=== PATIENT | female | born 1960 | race Caucasian/White ===

== ENCOUNTER 2019-08-23 18:04 | Emergency (ER) | payer MEDICAID, OTHER ==
--- NOTE | 2019-08-23 18:11 | EDM.PDOC ---
<[facility] - Last Filed: 08/23/19 18:32> ED HPI GENERAL MEDICAL PROBLEM - General Stated Complaint: CHEST PAIN Time Seen by Provider: 08/23/19 18:32 Source of Information: Reports: Patient History Limitations: Reports: No Limitations - History of Present Illness INITIAL COMMENTS - FREE TEXT/NARRATIVE: 59 yo F who presented to the ER with chest pain and discomforts that started about an hour ago after doing her chores. Patient has h/o anxiety.Took Hydroxyzine last night for anxiety but does not think it helped. Patient reports that she has trouble catching her breath. No cough, Fever, nausea or vomiting. Went to the urgent care clinic and was sent to the ER for further evaluation. Onset: Today - Related Data Allergies Allergy/AdvReac Type Severity Reaction Status Date / Time Unable to Assess Allergy Unverified 08/23/19 18:23 Home Meds: Home Meds FLUoxetine [PROzac] 20 mg PO DAILY 08/23/19 [History] buPROPion [Wellbutrin SR] 150 mg PO DAILY 08/23/19 [History] hydrOXYzine HCL [Atarax] 25 mg PO BEDTIME PRN 08/23/19 [History] ED ROS GENERAL - Review of Systems Review Of Systems: See Below Constitutional: Reports: No Symptoms HEENT: Reports: No Symptoms Respiratory: Reports: No Symptoms Cardiovascular: Reports: Chest Pain Endocrine: Reports: No Symptoms GI/Abdominal: Reports: No Symptoms : Reports: No Symptoms Musculoskeletal: Reports: No Symptoms Skin: Reports: No Symptoms Neurological: Reports: No Symptoms Psychiatric: Reports: No Symptoms Hematologic/Lymphatic: Reports: No Symptoms Immunologic: Reports: No Symptoms ED EXAM, GENERAL - Physical Exam Exam: See Below Exam Limited By: No Limitations General Appearance: Alert, WD/WN, No Apparent Distress Eye Exam: Bilateral Eye: EOMI, PERRL Ears: Normal External Exam, Normal Canal, Hearing Grossly Normal, Normal TMs Ear Exam: Bilateral Ear: Auricle Normal, Canal Normal Nose: Normal Inspection, Normal Mucosa Throat/Mouth: Normal Inspection, Normal Lips, Normal Teeth Head: Atraumatic, Normocephalic Neck: Normal Inspection, Supple, Non-Tender, Full Range of Motion Respiratory/Chest: No Respiratory Distress, Lungs Clear Cardiovascular: Normal Peripheral Pulses, Regular Rate, Rhythm, No Edema GI/Abdominal: Normal Bowel Sounds, Soft, Non-Tender, No Organomegaly, No Mass Extremities: Normal Inspection, Normal Range of Motion, Non-Tender Neurological: Alert, Oriented, CN II-XII Intact, Normal Cognition Psychiatric: Normal Affect, Normal Mood Skin Exam: Warm Course - Vital Signs Last Recorded V/S: Last Vital Signs Temp 36.8 C 08/23/19 18:04 Pulse 99 08/23/19 18:04 Resp 19 08/23/19 18:04 BP 128/80 08/23/19 18:04 Pulse Ox 95 08/23/19 18:04 - Orders/Labs/Meds Orders: Active Orders 24 hr Category Date Time Status CXR [Chest 1V Frontal] [CR] Stat Exams 08/23/19 19:02 Taken Labs: Laboratory Tests 08/23/19 08/23/19 08/23/19 Range/Units 18:20 18:20 18:20 WBC 5.7 (4.5-12.0) X10-3/uL RBC 4.45 (3.23-5.20) x10(6)uL Hgb 14.1 (11.5-15.5) g/dL Hct 41.5 (30.0-51.3) % MCV 93.1 (80-96) fL MCH 31.6 (27.7-33.6) pg MCHC 33.9 (32.2-35.4) g/dL RDW 13.7 (11.5-15.5) % Plt Count 225 (125-369) X10(3)uL MPV 7.2 L (7.4-10.4) fL Neut % (Auto) 62.4 (46-82) % Lymph % (Auto) 28.4 (13-37) % [place] % (Auto) 7.6 (4-12) % Eos % (Auto) 1 (1.0-5.0) % Baso % (Auto) 1 (0-2) % Neut # (Auto) 3.6 (1.6-8.3) # Lymph # (Auto) 1.6 (0.6-5.0) # [place] # (Auto) 0.4 (0.0-1.3) # Eos # (Auto) 0.0 (0.0-0.8) # Baso # (Auto) 0.1 (0.0-0.2) # D-Dimer, Quantitative (0.0-0.59) mg/LFEU Sodium 138 (135-145) mmol/L Potassium 4.2 (3.5-5.3) mmol/L Chloride 103 (100-110) mmol/L Carbon Dioxide 26 (21-32) mmol/L BUN 15 (7-18) mg/dL Creatinine 1.2 H (0.55-1.02) mg/dL Est Cr Clr Drug Dosing 50.30 mL/min Estimated GFR (MDRD) 46 L (>60) BUN/Creatinine Ratio 12.5 (9-20) Glucose 107 (80-116) mg/dL Calcium 8.9 (8.6-10.2) mg/dL Total Bilirubin 0.5 (0.1-1.3) mg/dL AST 22 (5-25) IU/L ALT 37 H (12-36) U/L Alkaline Phosphatase 75 (56-112) IU/L Troponin I 5.2 (4.0-60.3) pg/mL NT-Pro-B Natriuret Pep (<=125) pg/mL Total Protein 7.3 (6.0-8.0) g/dL Albumin 4.1 (3.5-5.2) g/dL Globulin 3.2 g/dL Albumin/Globulin Ratio 1.3 08/23/19 08/23/19 Range/Units 18:20 18:20 WBC (4.5-12.0) X10-3/uL RBC (3.23-5.20) x10(6)uL Hgb (11.5-15.5) g/dL Hct (30.0-51.3) % MCV (80-96) fL MCH (27.7-33.6) pg MCHC (32.2-35.4) g/dL RDW (11.5-15.5) % Plt Count (125-369) X10(3)uL MPV (7.4-10.4) fL Neut % (Auto) (46-82) % Lymph % (Auto) (13-37) % [place] % (Auto) (4-12) % Eos % (Auto) (1.0-5.0) % Baso % (Auto) (0-2) % Neut # (Auto) (1.6-8.3) # Lymph # (Auto) (0.6-5.0) # [place] # (Auto) (0.0-1.3) # Eos # (Auto) (0.0-0.8) # Baso # (Auto) (0.0-0.2) # D-Dimer, Quantitative < 0.19 (0.0-0.59) mg/LFEU Sodium (135-145) mmol/L Potassium (3.5-5.3) mmol/L Chloride (100-110) mmol/L Carbon Dioxide (21-32) mmol/L BUN (7-18) mg/dL Creatinine (0.55-1.02) mg/dL Est Cr Clr Drug Dosing mL/min Estimated GFR (MDRD) (>60) BUN/Creatinine Ratio (9-20) Glucose (80-116) mg/dL Calcium (8.6-10.2) mg/dL Total Bilirubin (0.1-1.3) mg/dL AST (5-25) IU/L ALT (12-36) U/L Alkaline Phosphatase (56-112) IU/L Troponin I (4.0-60.3) pg/mL NT-Pro-B Natriuret Pep 90 (<=125) pg/mL Total Protein (6.0-8.0) g/dL Albumin (3.5-5.2) g/dL Globulin g/dL Albumin/Globulin Ratio Departure - Departure Disposition: Home, Self-Care 01 Clinical Impression: Chest pain, Chemical exposure, Anxiety Instructions: Nonspecific Chest Pain, Adult Referrals: Chery Stevens [employer] [Primary Care Provider] - Additional Instructions: Please read discharge instructions on atypical chest pain Wear mask when you work on with chemicals Take your clonazepam 0.5-1 mg twice daily for anxiety Follow up as needed Sepsis Event Note - Focused Exam Vital Signs: Vital Signs Temp Pulse Resp BP Pulse Ox 08/23/19 18:04 36.8 C 99 19 128/80 95 Date Exam was Performed: 08/23/19 Time Exam was Performed: 18:32 <Fabian Singh - Last Filed: 08/23/19 19:31> ED HPI GENERAL MEDICAL PROBLEM headache Pain Score (Numeric/FACES): 3 Course - Vital Signs Text/Narrative:: Labs/EKG/CXR was discussed with patient and verbalized full understanding Departure - Departure Time of Disposition: 19:30 Condition: Good Sepsis Event Note - Focused Exam Date Exam was Performed: 08/23/19 Time Exam was Performed: 19:28
--- NOTE | 2019-08-24 09:58 | CR ---
INDICATION: Chest pain. CHEST,1 VIEW: An AP upright view of the chest 08/23/19 was compared with revealing the heart to remain normal in size and shape. The aorta is minimally tortuous. Overlying EKG leads are noted. An active infiltrate or effusion was not identified. At the base of the neck, there are clips on the left of the midline compatible with previous surgery in that area, possibly thyroid. IMPRESSION: No acute process. MTDD
== END 2019-08-23 19:40 | disposition home or self-care (01) ==
LOC: FB.ED 18:04
DX: F41.9 Anxiety disorder, unspecified (principal); Z77.098 Contact with and (suspected) exposure to other hazardous, chiefly nonmedicinal, chemicals; Z79.899 Other long term (current) drug therapy
CPT/HCPCS: 36415; 71045; 80053; 83880; 84484; 85025; 85379; 93005; 99285-25

== ENCOUNTER 2024-05-16 20:29 | Emergency (ER) | payer MEDICAID ==
[2024-05-16] MEDS ORDERED: Sodium Chloride 0.9% 10 ML Syringe FLUSH PRN (20:40)
[2024-05-16] MEDS: Sodium Chloride 0.9% 1,000 ML IV ONE (21:00)
[2024-05-16 21:13] LABS: HEMOGLOBIN 11.9 g/dL (11.4-15.5); MEAN PLATELET VOLUME 8.1 fL (7.1-12.4); RED CELL DISTRIBUTION WIDTH 16.7 % (12.3-16.5)
[2024-05-16 21:15] LABS: HEMATOCRIT 33.7 % (34.2-48.2); MEAN CORPUSCULAR HGB CONC 35.3 g/dL (31.9-34.8); MEAN CORPUSCULAR VOLUME 113.3 fL (76.7-100.5); PLATELET COUNT,PLT 140 x10(3)uL (151-488); RED BLOOD CELL COUNT 2.97 x10(6)uL (3.60-5.20); WHITE BLOOD CELL COUNT,WBC 7.4 x10-3/uL (3.0-10.3)
[2024-05-16 21:17] LABS: INR 1.32 (1.00-1.24); PROTHROMBIN TIME 13.4 sec (9.0-11.1)
[2024-05-16 21:21] LABS: A/G RATIO 0.7; ALANINE AMINOTRANSFERASE,ALT 95 U/L (12-36); ALBUMIN 2.4 g/dL (3.2-4.6); ALKALINE PHOSPHATASE 369 IU/L (56-112); BLOOD UREA NITROGEN,BUN 10 mg/dL (7-18); BUN/CREATININE RATIO 12.5 (9-20); CALCIUM 7.7 mg/dL (8.6-10.2); CARBON DIOXIDE,CO2 23 mmol/L (21-32); CHLORIDE,CL 90 mmol/L (100-110); CREATININE 0.8 mg/dL (0.55-1.02); ESTIMATED GFR 83 mL/min (>60); GLUCOSE RANDOM 121 mg/dL (80-116); POTASSIUM,K 2.9 mmol/L (3.5-5.3); PROTEIN TOTAL,TP 5.8 g/dL (6.0-8.0); SODIUM,NA 130 mmol/L (135-145)
[2024-05-16 21:24] LABS: LIPASE 92 U/L (16-77); PRO B-TYPE NATRIUR PEPT,BNPPRO 244 pg/mL (<=125)
[2024-05-16 21:26] LABS: C-REACTIVE PROTEIN 4.79 mg/dL (<0.50); ETHANOL BLOOD MEDICAL < 0.03 % (<0.03); LACTIC ACID 3.5 mmol/L (0.4-2.0)
[2024-05-16 21:27] LABS: ASPARTATE AMNIOTRANSFERASE,AST 298 IU/L (5-25); BILIRUBIN TOTAL 28.5 mg/dL (0.1-1.3)
[2024-05-16 22:03] LABS: BAND PERCENT MAN 2 % (0-6); LYMPHOCYTES PERCENT MAN 25 % (13-37); SEG NEUTROPHILS PERCENT MAN 67 % (46-82)
[2024-05-16 22:04] LABS: ANISOCYTOSIS FEW; EOSINOPHILS PERCENT MAN 1 % (0-5); MONOCYTES PERCENT MAN 5 % (4-12)
[2024-05-16] MEDS: Iopamidol 755 Mg/ML 100 ML Bottle IV SCH (22:16)
[2024-05-16] MEDS: Ondansetron 4 MG/2 ML SDV IVPUSH ONE (22:39)
[2024-05-16 23:19] LABS: BILIRUBIN,URINE LARGE (NEGATIVE); GLUCOSE,URINE NORMAL (NORMAL); KETONES,URINE NEGATIVE (NEGATIVE); LEUKOCYTE ESTERASE,URINE NEGATIVE (NEGATIVE); NITRITE,URINE POSITIVE (NEGATIVE); OCCULT BLOOD,URINE MODERATE (NEGATIVE); PROTEIN,URINE 30 mg/dL (NEGATIVE); UROBILINOGEN,URINE 4 mg/dL (NEGATIVE)
[2024-05-16 23:47] LABS: APPEARANCE,URINE SLIGHTLY CLOUDY (CLEAR); COLOR,URINE ORANGE (YELLOW)
[2024-05-16 23:48] LABS: BACTERIA,URINE MODERATE (NS); RBC,URINE 0-5 (0-5); SQUAMOUS EPITHELIAL CELLS,UR OCCASIONAL (NS,R,O); WBC,URINE 0-5 (0-5)
[2024-05-17] MEDS: Sulfamethoxazole/Trimethoprim 800-160 MG Tab PO ONE (01:04)
[2024-05-17] MEDS: LORazepam 2 MG/ML SDV IVPUSH ONE (01:04)
[2024-05-17] MEDS: Sodium Chloride 0.9% 1,000 ML IV SCH (01:15)
[2024-05-17] MEDS: Potassium Chloride 20 MEQ in Premix Bag 1 BAG IV ONE (01:33)
[2024-05-17] MEDS: Ondansetron 4 MG/2 ML SDV IVPUSH PRN (08:13)
[2024-05-17] MEDS: Levothyroxine 50 MCG Tab PO SCH (08:14)
[2024-05-17] MEDS ORDERED: Sodium Chloride 0.9% 1,000 ML IV SCH (08:15)
[2024-05-17 08:36] LABS: BLOOD UREA NITROGEN,BUN 7 mg/dL (7-18); CALCIUM 6.7 mg/dL (8.6-10.2); CARBON DIOXIDE,CO2 26 mmol/L (21-32); CHLORIDE,CL 94 mmol/L (100-110); CREATININE 0.7 mg/dL (0.55-1.02); EST CRCL DRUG DOSING (CG) 81.03 mL/min; ESTIMATED GFR 98 mL/min (>60); GLUCOSE RANDOM 111 mg/dL (80-116); POTASSIUM,K 3.2 mmol/L (3.5-5.3); SODIUM,NA 131 mmol/L (135-145)
[2024-05-17 08:37] LABS: PLATELET COUNT,PLT 106 x10(3)uL (151-488); WHITE BLOOD CELL COUNT,WBC 5.4 x10-3/uL (3.0-10.3)
[2024-05-17 08:38] LABS: HEMATOCRIT 25.9 % (34.2-48.2); HEMOGLOBIN 9.2 g/dL (11.4-15.5); MEAN CORPUSCULAR HEMOGLOBIN 40.1 pg (23.9-33.9); MEAN CORPUSCULAR HGB CONC 35.5 g/dL (31.9-34.8); MEAN PLATELET VOLUME 7.8 fL (7.1-12.4); RED BLOOD CELL COUNT 2.29 x10(6)uL (3.60-5.20); RED CELL DISTRIBUTION WIDTH 16.6 % (12.3-16.5)
[2024-05-17 08:44] LABS: LACTIC ACID 1.5 mmol/L (0.4-2.0)
[2024-05-17 08:56] LABS: A/G RATIO 0.7; ALANINE AMINOTRANSFERASE,ALT 74 U/L (12-36); ALBUMIN 1.8 g/dL (3.2-4.6); ALKALINE PHOSPHATASE 286 IU/L (56-112); PROTEIN TOTAL,TP 4.4 g/dL (6.0-8.0)
[2024-05-17 09:06] LABS: ASPARTATE AMNIOTRANSFERASE,AST 222 IU/L (5-25); BILIRUBIN TOTAL 22.8 mg/dL (0.1-1.3)
[2024-05-17 09:07] LABS: BILIRUBIN DIRECT 20.2 mg/dL (0.10-0.20)
[2024-05-17 09:08] LABS: BILIRUBIN INDIRECT 2.5 mg/dL (0.0-1.0); BILIRUBIN TOTAL 22.7 mg/dL (0.1-1.3)
[2024-05-17 09:16] LABS: ANISOCYTOSIS FEW; BAND PERCENT MAN 3 % (0-6); LYMPHOCYTES PERCENT MAN 29 % (13-37); MONOCYTES PERCENT MAN 5 % (4-12); NRBC MANUAL 1 /100WBC (0-0); SEG NEUTROPHILS PERCENT MAN 63 % (46-82)
[2024-05-18 17:05] LABS: TRIIODOTHYRONINE,FREE FREE T3 0.9 pg/mL (2.5-4.3)
== END 2024-05-17 10:45 ==
LOC: FB.ED 20:29
DX: K85.90 Acute pancreatitis without necrosis or infection, unspecified (principal); E87.1 Hypo-osmolality and hyponatremia; E87.6 Hypokalemia; D18.03 Hemangioma of intra-abdominal structures; E16.0 Drug-induced hypoglycemia without coma; E89.0 Postprocedural hypothyroidism; N39.0 Urinary tract infection, site not specified; Z87.891 Personal history of nicotine dependence
CPT/HCPCS: 36415; 70450; 71260; 74177; 80053; 80307; 81001; 82140; 82247; 82248; 82947; 83605; 83690; 83880; 84439; 84443; 84481; 85025; 85610; 86140; 87040; 87086; 87088; 87186; 96361; 96365; 96366; 96375; 96376; 99285-25; A9270-GY; J2060; J2405; J3480; J7030; Q9967